=== PATIENT | female | born 1950 | race Caucasian/White ===

== ENCOUNTER 2018-05-13 16:25 | Inpatient (IN) ==
[2018-05-13] MEDS ORDERED: Morphine Inj 4 MG/ML Vial IV.PUSH ONE (20:02)
--- NOTE | 2018-05-13 20:16 | ED ---
HPI General Chief Complaint: Abdominal Pain Stated Complaint: Vomiting/Sob Time Seen by Provider: 05/13/18 20:00 History of Present Illness HPI narrative: This is a 67-year-old female who presents today with diffuse bloody diarrhea. Patient states she has had intermittent left lower abdominal cramps. She reports associated bloody stools. She has had this previously in the past and was told that she had severe colitis. She denies any fevers, chills. She denies any hematemesis but does report nausea and vomiting in addition to the bloody stools. There are no other complaints at the time of my examination. Related Data Home Medications Medication Instructions Recorded Confirmed No Known Home Medications 05/13/18 05/13/18 Allergies Allergy/AdvReac Type Severity Reaction Status Date / Time No Known Allergies Allergy Unverified 05/13/18 19:44 Review of Systems Except as stated in HPI: all other systems reviewed are negative Constitutional Denies chills and Denies fever(s) Eyes Reports system reviewed and no additional complaints, except as [facility] ENT Reports system reviewed and no additional complaints, except as [facility] Cardiovascular Denies chest pain and Denies palpitations Respiratory Denies chest congestion and Denies cough Gastrointestinal Reports hematochezia, Reports nausea, Reports vomiting and Denies hematemesis Genitourinary Denies hematuria and Denies dysuria Musculoskeletal Reports system reviewed and no additional complaints, except as [facility] Integumentary/Breasts Reports system reviewed and no additional complaints, except as [facility] Neurologic Reports dizziness and Denies headache(s) Psychiatric Reports system reviewed and no additional complaints, except as [facility] Endocrine Reports system reviewed and no additional complaints, except as [facility] PMFSH Medical History Medical History Colitis (Acute) H/O: hysterectomy (Acute) Hypertension (Acute) Rheumatoid arthritis (Acute) Surgical History Surgical History History of tonsillectomy and adenoidectomy (Acute) Social History Social History Substance History: No History of Abuse Second Hand Smoke Exposure: Yes Smoking Status: Current every day smoker Tobacco Type: Cigarettes How Often Do You Have a Drink Containing Alcohol: Never Immunization History Tetanus Immunization: <5 Years Hx Influenza Vaccine This Season: Yes Exam Narrative Exam Narrative: GENERAL: Well-developed well-nourished female in no acute respiratory distress. SKIN: Focused skin assessment warm/dry. HEAD: Atraumatic. Normocephalic. EYES: No scleral icterus. No injection or drainage. ENT: No nasal bleeding or discharge. Mucous membranes pink and moist. No gingival bleeding. NECK: Trachea midline. Supple. CARDIOVASCULAR: Regular rate and rhythm. No murmur appreciated. RESPIRATORY: No accessory muscle use. Clear to auscultation. Breath sounds equal bilaterally. GASTROINTESTINAL: Abdomen soft, nondistended. The patient has subjective tenderness in her left lower quadrant. There is no rebound or guarding. MUSCULOSKELETAL: No obvious deformities. No clubbing. No cyanosis. No edema. NEUROLOGICAL: Awake and alert. No obvious cranial nerve deficits. Motor grossly within normal limits. Normal speech. PSYCHIATRIC: Appropriate mood and affect; insight and judgment normal. Course Initial Documented Vital Signs Temperature 99.3 F 05/13/18 16:58 Pulse Rate 85 05/13/18 16:58 Respiratory Rate 17 05/13/18 16:58 Blood Pressure 171/73 H 05/13/18 16:58 Pulse Oximetry 99 05/13/18 16:58 Last Documented Vital Signs Temperature 99.3 F 05/13/18 16:58 Pulse Rate 77 05/13/18 19:35 Respiratory Rate 18 05/13/18 19:35 Blood Pressure 178/72 H 05/13/18 19:35 Pulse Oximetry 100 05/13/18 21:24 Medical Decision Making MDM Narrative Medical decision making narrative: 67-year-old female with a history of colitis , presented today with complaints of hematochezia. Patient's had multiple episodes of blood per rectum. She produced a sample for us which is obviously blood. Patient has left lower quadrant pain. Her H&H is stable at this time. She does not have any free air on her upright abdomen x-ray. CT scan is pending at this time to rule out diverticulitis. Case was discussed with Dr. Enmanuel Courtney, on-call for [facility], who agrees with the admission. He recommended we admit the patient to Dr. Eyl. He will write further orders. She has been started on Levaquin and Flagyl. Differential Diagnosis Differential Diagnosis: Colitis versus diverticulitis versus hemorrhoidal bleeding anemia Lab Data Result diagrams: 05/13/18 19:55 05/13/18 19:55 Lab Results 05/13/18 05/13/18 05/13/18 Range/Units 19:55 19:55 19:55 WBC 14.1 H (4.0-11.0) th/mm3 RBC 4.10 (4.00-5.30) mil/mm3 Hgb 12.7 (11.6-15.3) gm/dL Hct 35.8 (35.0-46.0) % MCV 87.3 (80.0-100.0) fL MCH 31.0 (27.0-34.0) pg MCHC 35.5 (32.0-36.0) % RDW 13.7 (11.6-17.2) % Plt Count 339 (150-450) th/mm3 MPV 7.6 (7.0-11.0) fL Neut % (Auto) 70.3 H (16.0-70.0) % Lymph % (Auto) 21.1 (9.0-44.0) % [place] % (Auto) 7.3 (0.0-8.0) % Eos % (Auto) 0.8 (0.0-4.0) % Baso % (Auto) 0.5 (0.0-2.0) % Neut # (Auto) 9.9 H (1.8-7.7) th/mm3 Lymph # (Auto) 3.0 (1.0-4.8) th/mm3 [place] # (Auto) 1.0 H (0.0-0.9) th/mm3 Eos # (Auto) 0.1 (0.0-0.4) th/mm3 Baso # (Auto) 0.1 (0.0-0.2) th/mm3 WBC Differential . Differential Comment Auto diff final PT 10.8 (9.8-11.6) sec INR 1.1 Ratio APTT 29.6 (24.3-30.1) sec Sodium (136-145) meq/L Potassium (3.5-5.1) meq/L Chloride (98-107) meq/L Carbon Dioxide (21.0-32.0) meq/L Anion Gap (5-15) meq/L BUN (7-18) mg/dL Creatinine (0.50-1.00) mg/dL Estimated GFR (>89) mL/min Random Glucose (74-106) mg/dL Calcium (8.5-10.1) mg/dL Total Bilirubin (0.2-1.0) mg/dL AST (15-37) U/L ALT (10-53) U/L Alkaline Phosphatase (45-117) U/L Total Protein (6.4-8.2) g/dL Albumin (3.4-5.0) g/dL Lipase 117 (73-393) U/L Urine Color (Yellw/Straw) Urine Clarity (Clear) Urine pH (5.0-8.5) Ur Specific [place] (1.002-1.035) Urine Protein (Neg-Trace) mg/dL Urine Glucose (UA) (Negative) mg/dL Urine Ketones (Negative) mg/dL Urine Occult Blood (Negative) Urine Nitrate (Negative) Urine Bilirubin (Negative) Urine Urobilinogen (Less than 2) mg/dL Ur Leukocyte Esterase (Negative) Urine RBC (0-3) /hpf Urine WBC (0-5) /hpf Ur Squamous Epith Cells (0-5) /hpf Urine Mucus (Occasional) /lpf Micro UA Comment Urine Culture Comments Stl C.difficile Tox PCR (Negative) St C. diff Tox Epid 027 (Negative) Blood Type Antibody Screen 05/13/18 05/13/18 05/13/18 Range/Units 19:55 19:55 20:00 WBC (4.0-11.0) th/mm3 RBC (4.00-5.30) mil/mm3 Hgb (11.6-15.3) gm/dL Hct (35.0-46.0) % MCV (80.0-100.0) fL MCH (27.0-34.0) pg MCHC (32.0-36.0) % RDW (11.6-17.2) % Plt Count (150-450) th/mm3 MPV (7.0-11.0) fL Neut % (Auto) (16.0-70.0) % Lymph % (Auto) (9.0-44.0) % [place] % (Auto) (0.0-8.0) % Eos % (Auto) (0.0-4.0) % Baso % (Auto) (0.0-2.0) % Neut # (Auto) (1.8-7.7) th/mm3 Lymph # (Auto) (1.0-4.8) th/mm3 [place] # (Auto) (0.0-0.9) th/mm3 Eos # (Auto) (0.0-0.4) th/mm3 Baso # (Auto) (0.0-0.2) th/mm3 WBC Differential Differential Comment PT (9.8-11.6) sec INR Ratio APTT (24.3-30.1) sec Sodium 139 (136-145) meq/L Potassium 3.5 (3.5-5.1) meq/L Chloride 105 (98-107) meq/L Carbon Dioxide 26.0 (21.0-32.0) meq/L Anion Gap 8 (5-15) meq/L BUN 12 (7-18) mg/dL Creatinine 0.57 (0.50-1.00) mg/dL Estimated GFR Greater than 89 (>89) mL/min Random Glucose 85 (74-106) mg/dL Calcium 9.0 (8.5-10.1) mg/dL Total Bilirubin 0.5 (0.2-1.0) mg/dL AST 15 (15-37) U/L ALT 25 (10-53) U/L Alkaline Phosphatase 112 (45-117) U/L Total Protein 8.1 (6.4-8.2) g/dL Albumin 4.0 (3.4-5.0) g/dL Lipase (73-393) U/L Urine Color (Yellw/Straw) Urine Clarity (Clear) Urine pH (5.0-8.5) Ur Specific [place] (1.002-1.035) Urine Protein (Neg-Trace) mg/dL Urine Glucose (UA) (Negative) mg/dL Urine Ketones (Negative) mg/dL Urine Occult Blood (Negative) Urine Nitrate (Negative) Urine Bilirubin (Negative) Urine Urobilinogen (Less than 2) mg/dL Ur Leukocyte Esterase (Negative) Urine RBC (0-3) /hpf Urine WBC (0-5) /hpf Ur Squamous Epith Cells (0-5) /hpf Urine Mucus (Occasional) /lpf Micro UA Comment Urine Culture Comments Stl C.difficile Tox PCR Negative (Negative) St C. diff Tox Epid 027 Negative (Negative) Blood Type O Positive Antibody Screen Negative 05/13/18 Range/Units 20:02 WBC (4.0-11.0) th/mm3 RBC (4.00-5.30) mil/mm3 Hgb (11.6-15.3) gm/dL Hct (35.0-46.0) % MCV (80.0-100.0) fL MCH (27.0-34.0) pg MCHC (32.0-36.0) % RDW (11.6-17.2) % Plt Count (150-450) th/mm3 MPV (7.0-11.0) fL Neut % (Auto) (16.0-70.0) % Lymph % (Auto) (9.0-44.0) % [place] % (Auto) (0.0-8.0) % Eos % (Auto) (0.0-4.0) % Baso % (Auto) (0.0-2.0) % Neut # (Auto) (1.8-7.7) th/mm3 Lymph # (Auto) (1.0-4.8) th/mm3 [place] # (Auto) (0.0-0.9) th/mm3 Eos # (Auto) (0.0-0.4) th/mm3 Baso # (Auto) (0.0-0.2) th/mm3 WBC Differential Differential Comment PT (9.8-11.6) sec INR Ratio APTT (24.3-30.1) sec Sodium (136-145) meq/L Potassium (3.5-5.1) meq/L Chloride (98-107) meq/L Carbon Dioxide (21.0-32.0) meq/L Anion Gap (5-15) meq/L BUN (7-18) mg/dL Creatinine (0.50-1.00) mg/dL Estimated GFR (>89) mL/min Random Glucose (74-106) mg/dL Calcium (8.5-10.1) mg/dL Total Bilirubin (0.2-1.0) mg/dL AST (15-37) U/L ALT (10-53) U/L Alkaline Phosphatase (45-117) U/L Total Protein (6.4-8.2) g/dL Albumin (3.4-5.0) g/dL Lipase (73-393) U/L Urine Color Yellow (Yellw/Straw) Urine Clarity Hazy H (Clear) Urine pH 5.0 (5.0-8.5) Ur Specific [place] 1.023 (1.002-1.035) Urine Protein Negative (Neg-Trace) mg/dL Urine Glucose (UA) Negative (Negative) mg/dL Urine Ketones Trace H (Negative) mg/dL Urine Occult Blood Small H (Negative) Urine Nitrate Negative (Negative) Urine Bilirubin Negative (Negative) Urine Urobilinogen 2.0 H (Less than 2) mg/dL Ur Leukocyte Esterase Trace H (Negative) Urine RBC 3 (0-3) /hpf Urine WBC 3 (0-5) /hpf Ur Squamous Epith Cells <1 (0-5) /hpf Urine Mucus Many H (Occasional) /lpf Micro UA Comment Culture not ind Urine Culture Comments Culture not ind Stl C.difficile Tox PCR (Negative) St C. diff Tox Epid 027 (Negative) Blood Type Antibody Screen Imaging Data Radiologist's impression: Abdomen X-Ray 05/13/18 19:47 CONCLUSION: Discharge Plan Physicians Team ED Provider: Felix Zendejas Primary Care Provider: Enmanuel Dickens Rxs /Orders / Referrals /Forms Prescriptions: No Action No Known Home Medications RF: 0 Discharge Interventions Interventions: Vital Signs Last Done: 05/13/18 19:35 Status ED Status: With Doctor
[2018-05-13 20:17] LABS: Baso # (Auto) 0.1 th/mm3 (0.0-0.2); Baso % (Auto) 0.5 % (0.0-2.0); Eos # (Auto) 0.1 th/mm3 (0.0-0.4); Eos % (Auto) 0.8 % (0.0-4.0); Hematocrit 35.8 % (35.0-46.0); Hemoglobin 12.7 gm/dL (11.6-15.3); Lymph % (Auto) 21.1 % (9.0-44.0); Mean Corpuscular HGB Conc 35.5 % (32.0-36.0); Mean Corpuscular Volume 87.3 fL (80.0-100.0); Mean Platelet Volume 7.6 fL (7.0-11.0); Mono % (Auto) 7.3 % (0.0-8.0); Neut # (Auto) 9.9 th/mm3 (1.8-7.7); Neut % (Auto) 70.3 % (16.0-70.0); Platelet Count 339 th/mm3 (150-450); Red Cell Distribution Width 13.7 % (11.6-17.2); White Blood Count 14.1 th/mm3 (4.0-11.0)
[2018-05-13 20:24] LABS: Activated Partial Thrombo Time 29.6 sec (24.3-30.1); INR 1.1 Ratio; Prothrombin Time 10.8 sec (9.8-11.6)
[2018-05-13 20:34] LABS: Alanine Aminotransferase 25 U/L (10-53); Anion Gap 8 meq/L (5-15); Aspartate Aminotransferase 15 U/L (15-37); Blood Urea Nitrogen 12 mg/dL (7-18); Chloride 105 meq/L (98-107); Glomerular Filtration Rate Greater Than 89 mL/min (>89); Glucose,Random 85 mg/dL (74-106); Potassium 3.5 meq/L (3.5-5.1); Sodium 139 meq/L (136-145)
[2018-05-13 20:37] LABS: Alkaline Phosphatase 112 U/L (45-117); Total Protein 8.1 g/dL (6.4-8.2)
[2018-05-13 20:44] LABS: Bilirubin,Urine Negative (Negative); Clarity,Urine Hazy (Clear); Color,Urine Yellow (Yellw/Straw); Glucose,Urine (UA) Negative (Negative); Leukocyte Esterase,Urine Trace (Negative); Mucus,Urine Many /lpf (Occasional); Nitrite,Urine Negative (Negative); Specific Gravity,Urine 1.023 (1.002-1.035); Squamous Epithelial Cell,Urine <1 /hpf (0-5)
[2018-05-13] MEDS ORDERED: Sod Chloride 0.9% Inj 1,000 ML IV.SIG ONE (20:44)
--- NOTE | 2018-05-13 21:07 | XR ---
EXAM DATE: 05/13/2018 8:26 PM EDT AGE/SEX: 67 years / Female INDICATIONS: Blood in stool. CLINICAL DATA: This is the patient's initial encounter. Patient reports that signs and symptoms have been present for 3 days and indicates a pain score of 4/10. MEDICAL/SURGICAL HISTORY: None. None. COMPARISON: No prior exams available for comparison. FINDINGS: The abdominal bowel gas pattern is normal. No abnormal masses, calcifications, or organomegaly is s een. There is degenerative change in the lower lumbar spine. 2 small metallic densities are seen over the pubic bones likely from prior bladder suspension surgery. Negative KUB. Electronically signed by: Wilson Carey MD 05/13/2018 9:06 PM EDT
[2018-05-13] MEDS ORDERED: Levofloxacin 500 mg Premix Inj 500 MG/100 ML PIGGYBACK IV.SIG ONE (21:30)
[2018-05-13] MEDS ORDERED: Diatrizoate Meglum/Diatrizoate Sod Liq 9 ML UDC PO ONE (21:37)
[2018-05-13] MEDS ORDERED: Diatrizoate Meglum/Diatrizoate Sod Liq 9 ML UDC ONE (21:42)
[2018-05-13] MEDS ORDERED: Bisacodyl 10 MG Supp RECTAL PRN (23:11)
[2018-05-13] MEDS ORDERED: Temazepam 15 MG Capsule PO PRN (23:11)
--- NOTE | 2018-05-13 23:25 | P.HP ---
History of Present Illness Service: CP hospitalist Primary Care Physician: Enmanuel Dickens MD Chief Complaint: Blood per rectum with abdominal pain History of Present Illness: 67-year-old female who was sent via telephone conversation by myself with diffuse bloody diarrhea that has been lasting all day. Associated with this symptom with this diffuse bloody diarrhea his left lower quadrant abdominal pain. Has several episodes of bloody stools. She has had a similar presentation in the past and was told at that time that she had severe colitis. Denies any fever, chills, hematemesis does have some nausea and vomiting in addition to the bloody stools. Denies chest pain ,shortness of breath but does have some fatigue. In the emergency room had lab work showing a WBC count of 14 ,000 and is empirically started on IV antibiotic Levaquin and Flagyl at this time CAT scan will be ordered and we will consult [facility] GI. - Diagnosis (1) Hematochezia (2) Colitis Inpatient Certification: I certify that the inpatient services were ordered in accordance with Medicare regulations governing the order. This includes certification that hospital inpatient services are reasonable and necessary and in the case of services not specified as inpatient-only under 42 CFR 419.22(n), that they are appropriately provided as inpatient services in accordance to with the 2-midnight benchmark under 43 CFR 412.3(e) Estimated Total Length of Stay (Days): 2 Plans for Post Hospital Care: Home Review of Systems All other systems reviewed negative except as stated in [facility] - History History Provided By: Patient - Medical History Medical History: Medical History (Last Updated 05/13/18 @ 19:37 by Zoey Oviedo) Colitis H/O: hysterectomy Hypertension Rheumatoid arthritis - Surgical History Surgical History: Surgical History (Last Updated 05/13/18 @ 19:37 by Zoey Oviedo) History of tonsillectomy and adenoidectomy - Tobacco History Second Hand Smoke Exposure: Yes Tobacco Use In Past 30 Days: Yes Smoking Status: Current every day smoker Tobacco Type: Cigarettes - Alcohol History How Often Do You Have a Drink Containing Alcohol: Never - Substance Use History Substance History: No History of Abuse - Immunization History Tetanus Immunization: <5 Years Hx Influenza Vaccine This Season: Yes Medications and Allergies Active Medications: Active Medications Al Hydroxide/Mg Hydroxide (Milk Of Magnpallavi Liq) 30 ml PO Q12H PRN PRN Reason: Mild Constipation Bisacodyl (Dulcolax Supp) 10 mg RECTAL DAILY PRN PRN Reason: SEVERE CONSITIPATION Levofloxacin/Dextrose (Levaquin 500 Mg Premix Inj) 500 mg in 100 mls @ 100 mls/ hr IV.SIG Q24H TONA Metronidazole/Sodium Chloride (Flagyl 500 Mg Inj) 100 mls @ 100 mls/hr IV.SIG Q8H TONA Sodium Chloride (1/2 Normal Saline Inj) 1,000 mls @ 75 mls/hr IV.CONT .[id number] TONA Lactulose (Lactulose Liq) 30 ml PO DAILY PRN PRN Reason: SEVERE CONSITIPATION Morphine Sulfate (Morphine Inj) 4 mg IV.PUSH Q4H PRN PRN Reason: PAIN SCALE 6 TO 10 Senna/Docusate Sodium (Vanessa-Colace) 1 tab PO BID TONA Sennosides (Senokot) 17.2 mg PO Q12H PRN PRN Reason: Moderate Constipation Sodium Chloride (Ns Flush) 2 ml IV.FLUSH PRN PRN PRN Reason: FLUSH AFTER USING IV ACCESS Temazepam (Restoril) 15 mg PO HS PRN PRN Reason: INSOMNIA Allergies Allergy/AdvReac Type Severity Reaction Status Date / Time No Known Allergies Allergy Unverified 05/13/18 19:44 Home Medications Medication Instructions Recorded Confirmed Type No Known Home Medications 05/13/18 05/13/18 History Exam Vital signs: Vital Signs 05/13/18 16:58 05/13/18 19:35 05/13/18 21:24 Temperature 99.3 F Pulse Rate 85 77 Respiratory Rate 17 18 Blood Pressure 171/73 H 178/72 H Pulse Oximetry 99 99 100 Intake & Output 05/13/18 05/13/18 05/14/18 06:59 18:59 06:59 Weight 86.581 kg Narrative: GENERAL: SKIN: Warm and dry. HEAD: Atraumatic. Normocephalic. EYES: Pupils equal and round. No scleral icterus. No injection or drainage. ENT: No nasal bleeding or discharge. Mucous membranes pink and moist. NECK: Trachea midline. No JVD. CARDIOVASCULAR: Regular rate and rhythm. RESPIRATORY: No accessory muscle use. Clear to auscultation. Breath sounds equal bilaterally. GASTROINTESTINAL: Abdomen soft, -tender left lower quadrant, nondistended. Hepatic and splenic margins not palpable. MUSCULOSKELETAL: Extremities without clubbing, cyanosis, or edema. No obvious deformities. NEUROLOGICAL: Awake and alert. No obvious cranial nerve deficits. Motor grossly within normal limits. Five out of 5 muscle strength in the arms and legs. Normal speech. PSYCHIATRIC: Appropriate mood and affect; insight and judgment normal. Results - Labs CBC & Chem 7: 05/13/18 19:55 05/13/18 19:55 Labs: Laboratory Results - last 24 hr 05/13/18 05/13/18 05/13/18 19:55 19:55 19:55 WBC 14.1 H RBC 4.10 Hgb 12.7 Hct 35.8 MCV 87.3 MCH 31.0 MCHC 35.5 RDW 13.7 Plt Count 339 MPV 7.6 Neut % (Auto) 70.3 H Lymph % (Auto) 21.1 [place] % (Auto) 7.3 Eos % (Auto) 0.8 Baso % (Auto) 0.5 Neut # (Auto) 9.9 H Lymph # (Auto) 3.0 [place] # (Auto) 1.0 H Eos # (Auto) 0.1 Baso # (Auto) 0.1 WBC Differential . Differential Comment Auto diff final PT 10.8 INR 1.1 APTT 29.6 Sodium Potassium Chloride Carbon Dioxide Anion Gap BUN Creatinine Estimated GFR Random Glucose Calcium Total Bilirubin AST ALT Alkaline Phosphatase Total Protein Albumin Lipase 117 Urine Color Urine Clarity Urine pH Ur Specific [place] Urine Protein Urine Glucose (UA) Urine Ketones Urine Occult Blood Urine Nitrate Urine Bilirubin Urine Urobilinogen Ur Leukocyte Esterase Urine RBC Urine WBC Ur Squamous Epith Cells Urine Mucus Micro UA Comment Urine Culture Comments Stl C.difficile Tox PCR St C. diff Tox Epid 027 Blood Type Antibody Screen 05/13/18 05/13/18 05/13/18 19:55 19:55 20:00 WBC RBC Hgb Hct MCV MCH MCHC RDW Plt Count MPV Neut % (Auto) Lymph % (Auto) [place] % (Auto) Eos % (Auto) Baso % (Auto) Neut # (Auto) Lymph # (Auto) [place] # (Auto) Eos # (Auto) Baso # (Auto) WBC Differential Differential Comment PT INR APTT Sodium 139 Potassium 3.5 Chloride 105 Carbon Dioxide 26.0 Anion Gap 8 BUN 12 Creatinine 0.57 Estimated GFR Greater than 89 Random Glucose 85 Calcium 9.0 Total Bilirubin 0.5 AST 15 ALT 25 Alkaline Phosphatase 112 Total Protein 8.1 Albumin 4.0 Lipase Urine Color Urine Clarity Urine pH Ur Specific [place] Urine Protein Urine Glucose (UA) Urine Ketones Urine Occult Blood Urine Nitrate Urine Bilirubin Urine Urobilinogen Ur Leukocyte Esterase Urine RBC Urine WBC Ur Squamous Epith Cells Urine Mucus Micro UA Comment Urine Culture Comments Stl C.difficile Tox PCR Negative St C. diff Tox Epid 027 Negative Blood Type O Positive Antibody Screen Negative 05/13/18 20:02 WBC RBC Hgb Hct MCV MCH MCHC RDW Plt Count MPV Neut % (Auto) Lymph % (Auto) [place] % (Auto) Eos % (Auto) Baso % (Auto) Neut # (Auto) Lymph # (Auto) [place] # (Auto) Eos # (Auto) Baso # (Auto) WBC Differential Differential Comment PT INR APTT Sodium Potassium Chloride Carbon Dioxide Anion Gap BUN Creatinine Estimated GFR Random Glucose Calcium Total Bilirubin AST ALT Alkaline Phosphatase Total Protein Albumin Lipase Urine Color Yellow Urine Clarity Hazy H Urine pH 5.0 Ur Specific [place] 1.023 Urine Protein Negative Urine Glucose (UA) Negative Urine Ketones Trace H Urine Occult Blood Small H Urine Nitrate Negative Urine Bilirubin Negative Urine Urobilinogen 2.0 H Ur Leukocyte Esterase Trace H Urine RBC 3 Urine WBC 3 Ur Squamous Epith Cells <1 Urine Mucus Many H Micro UA Comment Culture not ind Urine Culture Comments Culture not ind Stl C.difficile Tox PCR St C. diff Tox Epid 027 Blood Type Antibody Screen - Imaging Impressions Abdomen X-Ray 05/13/18 19:47 CONCLUSION: abd xray negative Caprini VTE Risk Assessment Caprini VTE Risk Assessment: No/Low Risk (score <= 1) Caprini Risk Assessment Model: Point Value = 1 Point Value = 2 Point Value = 3 Point Value = 5 Age 41-60 Minor surgery BMI > 25 kg/m2 Swollen legs Varicose veins or History of unexplained or recurrent spontaneous Oral contraceptives or hormone replacement Sepsis (< 1 month) Serious lung disease, including pneumonia (< 1 month) Abnormal pulmonary function Acute myocardial infarction Congestive heart failure (< 1 month) History of inflammatory bowel disease Medical patient at bed rest Age 61-74 Arthroscopic surgery Major open surgery (> 45 min) Laparoscopic surgery (> 45 min) Malignancy Confined to bed (> 72 hours) Immobilizing plaster cast Central venous access Age >= 75 History of VTE Family history of VTE Factor V Leiden Prothrombin [id number] Lupus anticoagulant Anticardiolipin antibodies Elevated serum homocysteine Heparin-induced thrombocytopenia Other congenital or acquired thrombophilia Stroke (< 1 month) Elective arthroplasty Hip, pelvis, or leg fracture Acute spinal cord injury (< 1 month) Prophylaxis Regimen: Total Risk Factor Score Risk Level Prophylaxis Regimen 0-1 Low Early ambulation 2 Moderate Order ONE of the following: *Sequential Compression Device (SCD) *Heparin 5000 units SQ BID 3-4 Higher Order ONE of the following medications: *Heparin 5000 units SQ TID *Enoxaparin/Lovenox 40 mg SQ daily (WT < 150 kg, CrCl > 30 mL/min) *Enoxaparin/Lovenox 30 mg SQ daily (WT < 150 kg, CrCl > 10-29 mL/min) *Enoxaparin/Lovenox 30 mg SQ BID (WT < 150 kg, CrCl > 30 mL/min) AND/OR *Sequential Compression Device (SCD) 5 or more Highest Order ONE of the following medications: *Heparin 5000 units SQ TID (Preferred with Epidurals) *Enoxaparin/Lovenox 40 mg SQ daily (WT < 150 kg, CrCl > 30 mL/min) *Enoxaparin/Lovenox 30 mg SQ daily (WT < 150 kg, CrCl > 10-29 mL/min) *Enoxaparin/Lovenox 30 mg SQ BID (WT < 150 kg, CrCl > 30 mL/min) AND *Sequential Compression Device (SCD) Assessment and Plan - Assessment (1) Hematochezia Code(s): K92.1 - Melena Status: Acute Plan: follow [facility] GI consult (2) Colitis Code(s): K52.9 - Noninfective gastroenteritis and colitis, unspecified Status : Acute Plan: Patient does have a history of colitis in the past will empirically start Flagyl and Levaquin and consult [facility] GI - Plan Patient with hx colitis with similar presentation will empiric start flagyl and levaquin consult GI recheck labs further plan as case progresses Code Status: full Discussed Condition With: patient
[2018-05-13] MEDS ORDERED: Acetaminophen 325 MG Tablet PO PRN (23:29)
--- NOTE | 2018-05-14 00:29 | CT ---
EXAM DATE: 05/14/2018 12:22 AM EDT AGE/SEX: 67 years / Female INDICATIONS: Abdomen pain. CLINICAL DATA: This is the patient's initial encounter. Patient reports that signs and symptoms have been present for 1 day and indicates a pain score of 6/10. MEDICAL/SURGICAL HISTORY: Rheumatoid arthritis. Hypertension. Colitis. Hysterectomy. Appende ctomy. ORAL CONTRAST: Prescribed oral contrast ingested. RADIATION DOSE: 8.1 CTDI (mGy) COMPARISON: [facility], CT ABDOMEN AND PELVIS W/O CONTRAST, 01/23/2015. . TECHNIQUE: Multiple contiguous axial images were obtained through the abdomen and pelvis following b olus infusion of 100 ml Omnipaque 350 (iohexol) nonionic water-soluble contrast as a single exam do se. Prescribed oral contrast ingested. Using automated exposure control and adjustment of the mA and /or kV according to patient size, radiation dose was kept as low as reasonably achievable to obtain o ptimal diagnostic quality images. DICOM format image data is available electronically for review and comparison. FINDINGS: Lower Lungs: The visualized lower lungs are clear. Liver: Isolated, 7 mm probable cyst in the right hepatic lobe. Otherwise, homogeneous density. There is no dilation of the biliary tree. Spleen: Homogeneous density without enlargement. Pancreas: Unremarkable without mass or calcification. Kidneys: Normal in size and shape. No evidence of mass or hydronephrosis. Adrenal Glands: Unremarkable. Aorta: The aorta and proximal iliac vessels are grossly unremarkable without aneurysmal dilation. Bowel/Mesentery: The bowel loops are grossly unremarkable. The cecum and sigmoid colon have a normal configuration. Appendix is not identified Abdominal Wall: Intact. Retroperitoneum: No evidence of adenopathy in the retrocrural, para-aortic, or deep pelvic regions. Bladder: Contours are smooth. Reproductive Organs: Patient appears to be status post hysterectomy. Inguinal: The inguinal region is unremarkable without evidence of adenopathy. Bony Structures: Unremarkable. Post Contrast: No abnormal areas of enhancement seen. 1. 7 mm benign-appearing probable right hepatic lobe cyst. 2. Patient appears to be status post appendectomy and hysterectomy. 3. Otherwise, no acute intraperitoneal or pelvic process to explain current clinical symptoms. Electronically signed by: Fantasma Dillon MD 05/14/2018 12:28 AM EDT
[2018-05-14] MEDS: Sodium Chloride 0.45 % Inj 1,000 ML IV.CONT SCH ×2 (00:53→14:18)
[2018-05-14] MEDS: Morphine Inj 4 MG/ML Vial IV.PUSH PRN ×4 (01:54→20:25)
[2018-05-14 07:39] LABS: Baso # (Auto) 0.1 th/mm3 (0.0-0.2); Baso % (Auto) 0.6 % (0.0-2.0); Eos # (Auto) 0.2 th/mm3 (0.0-0.4); Eos % (Auto) 2.4 % (0.0-4.0); Hematocrit 31.2 % (35.0-46.0); Hemoglobin 10.8 gm/dL (11.6-15.3); Lymph # (Auto) 3.2 th/mm3 (1.0-4.8); Lymph % (Auto) 31.7 % (9.0-44.0); Mean Corpuscular HGB Conc 34.5 % (32.0-36.0); Mean Corpuscular Hemoglobin 30.8 pg (27.0-34.0); Mean Corpuscular Volume 89.5 fL (80.0-100.0); Mean Platelet Volume 7.6 fL (7.0-11.0); Mono # (Auto) 1.1 th/mm3 (0.0-0.9); Mono % (Auto) 10.7 % (0.0-8.0); Neut # (Auto) 5.5 th/mm3 (1.8-7.7); Neut % (Auto) 54.6 % (16.0-70.0); Platelet Count 284 th/mm3 (150-450); Red Blood Count 3.49 mil/mm3 (4.00-5.30); Red Cell Distribution Width 13.4 % (11.6-17.2); White Blood Count 10.1 th/mm3 (4.0-11.0)
[2018-05-14 08:10] LABS: Anion Gap 6 meq/L (5-15); Blood Urea Nitrogen 8 mg/dL (7-18); Carbon Dioxide 28.5 meq/L (21.0-32.0); Chloride 107 meq/L (98-107); Glomerular Filtration Rate Greater Than 89 mL/min (>89); Glucose,Random 103 mg/dL (74-106); Potassium 3.5 meq/L (3.5-5.1); Sodium 141 meq/L (136-145)
[2018-05-14] MEDS: Senna/Docusate Sodium 8.6/50 MG Tablet PO SCH ×2 (08:20→20:22)
--- NOTE | 2018-05-14 08:50 | P.PNIM ---
Subjective Interval history: Pt reports that her abd pain is relatively unchanged. She had not had any further bloody BMs since around 0400 this morning No further vomiting since prior to admission. Afebrile Tolerating sips of clear liquids Physical Exam Vital signs: Vital Signs 05/13/18 16:58 05/13/18 19:35 05/13/18 21:24 Temperature 99.3 F Pulse Rate 85 77 Respiratory Rate 17 18 Blood Pressure 171/73 H 178/72 H Pulse Oximetry 99 99 100 05/14/18 00:28 05/14/18 04:00 05/14/18 08:00 Temperature 98.7 F 98.6 F Pulse Rate 77 63 62 Respiratory Rate 18 16 16 Blood Pressure 138/78 114/47 L 131/58 L Pulse Oximetry 98 97 Intake & Output 05/13/18 05/14/18 05/14/18 18:59 06:59 18:59 Intake Total 100 / 100 Balance 100 / 100 Weight 86.581 kg Intake: IV 100 / 100 Flagyl 500 MG Inj 100 ML @ 100 100 / 100 mls/hr IV.SIG Q8H [facility] Rx#: [id number] Other: # Voids 3 Date of Last Bowel Movement 05/14/18 # Bowel Movements 3 Narrative: GENERAL: NAD, AAOx3 CARDIO: Regular RESP: Breath sounds equal bilaterally. No accessory muscle use. ABD: +BS, soft, nondistended, left sided tenderness, no guarding or rebound EXT: No cyanosis, or edema. Results - Labs CBC & Chem 7: 05/14/18 06:10 05/14/18 06:10 Laboratory Results - last 24 hr 05/13/18 05/13/18 05/13/18 19:55 19:55 19:55 WBC 14.1 H RBC 4.10 Hgb 12.7 Hct 35.8 MCV 87.3 MCH 31.0 MCHC 35.5 RDW 13.7 Plt Count 339 MPV 7.6 Neut % (Auto) 70.3 H Lymph % (Auto) 21.1 [place] % (Auto) 7.3 Eos % (Auto) 0.8 Baso % (Auto) 0.5 Neut # (Auto) 9.9 H Lymph # (Auto) 3.0 [place] # (Auto) 1.0 H Eos # (Auto) 0.1 Baso # (Auto) 0.1 WBC Differential . Differential Comment Auto diff final PT 10.8 INR 1.1 APTT 29.6 Sodium Potassium Chloride Carbon Dioxide Anion Gap BUN Creatinine Estimated GFR Random Glucose Calcium Total Bilirubin AST ALT Alkaline Phosphatase Total Protein Albumin Lipase 117 Urine Color Urine Clarity Urine pH Ur Specific [place] Urine Protein Urine Glucose (UA) Urine Ketones Urine Occult Blood Urine Nitrate Urine Bilirubin Urine Urobilinogen Ur Leukocyte Esterase Urine RBC Urine WBC Ur Squamous Epith Cells Urine Mucus Micro UA Comment Urine Culture Comments Stl C.difficile Tox PCR St C. diff Tox Epid 027 Blood Type Antibody Screen 05/13/18 05/13/18 05/13/18 19:55 19:55 20:00 WBC RBC Hgb Hct MCV MCH MCHC RDW Plt Count MPV Neut % (Auto) Lymph % (Auto) [place] % (Auto) Eos % (Auto) Baso % (Auto) Neut # (Auto) Lymph # (Auto) [place] # (Auto) Eos # (Auto) Baso # (Auto) WBC Differential Differential Comment PT INR APTT Sodium 139 Potassium 3.5 Chloride 105 Carbon Dioxide 26.0 Anion Gap 8 BUN 12 Creatinine 0.57 Estimated GFR Greater than 89 Random Glucose 85 Calcium 9.0 Total Bilirubin 0.5 AST 15 ALT 25 Alkaline Phosphatase 112 Total Protein 8.1 Albumin 4.0 Lipase Urine Color Urine Clarity Urine pH Ur Specific [place] Urine Protein Urine Glucose (UA) Urine Ketones Urine Occult Blood Urine Nitrate Urine Bilirubin Urine Urobilinogen Ur Leukocyte Esterase Urine RBC Urine WBC Ur Squamous Epith Cells Urine Mucus Micro UA Comment Urine Culture Comments Stl C.difficile Tox PCR Negative St C. diff Tox Epid 027 Negative Blood Type O Positive Antibody Screen Negative 05/13/18 05/14/18 05/14/18 20:02 06:10 06:10 WBC 10.1 RBC 3.49 L Hgb 10.8 L Hct 31.2 L MCV 89.5 MCH 30.8 MCHC 34.5 RDW 13.4 Plt Count 284 MPV 7.6 Neut % (Auto) 54.6 Lymph % (Auto) 31.7 [place] % (Auto) 10.7 H Eos % (Auto) 2.4 Baso % (Auto) 0.6 Neut # (Auto) 5.5 Lymph # (Auto) 3.2 [place] # (Auto) 1.1 H Eos # (Auto) 0.2 Baso # (Auto) 0.1 WBC Differential . Differential Comment Auto diff final PT INR APTT Sodium 141 Potassium 3.5 Chloride 107 Carbon Dioxide 28.5 Anion Gap 6 BUN 8 Creatinine 0.62 Estimated GFR Greater than 89 Random Glucose 103 Calcium 8.0 L D Total Bilirubin AST ALT Alkaline Phosphatase Total Protein Albumin Lipase Urine Color Yellow Urine Clarity Hazy H Urine pH 5.0 Ur Specific [place] 1.023 Urine Protein Negative Urine Glucose (UA) Negative Urine Ketones Trace H Urine Occult Blood Small H Urine Nitrate Negative Urine Bilirubin Negative Urine Urobilinogen 2.0 H Ur Leukocyte Esterase Trace H Urine RBC 3 Urine WBC 3 Ur Squamous Epith Cells <1 Urine Mucus Many H Micro UA Comment Culture not ind Urine Culture Comments Culture not ind Stl C.difficile Tox PCR St C. diff Tox Epid 027 Blood Type Antibody Screen - Imaging Impressions Abdomen X-Ray 05/13/18 19:47 CONCLUSION: Abdomen/Pelvis CT 05/14/18 00:00 CONCLUSION: Assessment and Plan - Assessment (1) Hematochezia Code(s): K92.1 - Melena Status: Acute Plan: Hematochezia Hx of acute colitis Anemia - Pt is a 67 y/o female with HTN, RA, remote hx of acute ischemic colitis ( colonoscopy [place] [address] Krishnamurthy which revealed left sided colitis and pathology consistent with ischemic colitis). - She presented to the ED at [facility] on 05/13/18 with acute onset of abdominal pain, N/V, and hematochezia that began around 0600 on 05/13. - Pt reported profuse N/V but no hematemesis or coffee-ground emesis. She had hematochezia and mucoid stools up until around 0400 on 05/14. - CT Abd/pelvis (05/13) --> 7 mm benign-appearing probable right hepatic lobe cyst, s/p appendectomy and hysterectomy, otherwise, no acute intraperitoneal or pelvic process to explain current clinical symptoms. - Pt was started on Flagyl and Levaquin at admission - Cont. IVF - Pain control PRN - Stools are negative for C. diff - Clear liquid diet - GI has been consulted - Monitor labs closely - Supportive care - DVT prophylaxis HTN - Pt does not take any home meds - BP stable currently - PRN BP control The exam, history, and the medical decision-making described in the above note were completed with the assistance of the mid-level provider. I reviewed and agree with the findings presented. I attest that I had a [id number] encounter with the patient on the same day, and personally performed and documented my assessment and findings in the medical record. left lower quad pain and hematochezia. nonbloody vomiting. remote hx ischemic colitis. not on any bp meds. no hx IBD. no recent abx use and cdiff neg. c scope in AM. IVF. pain control. liquids. (2) Colitis Code(s): K52.9 - Noninfective gastroenteritis and colitis, unspecified Status : Acute
--- NOTE | 2018-05-14 09:13 | P.CONGI ---
History of Present Illness Consult date: 05/14/18 Consult reason: GIB Chief complaint: GI bleed, HX of colitis History of Present Illness: This is a 67 yo F who presented to the ER Last night with complaints of abdominal pain and rectal bleeding. Pt reports a LLQ abdominal pain woke her up out of her sleep yesterday morning and she felt the sudden urge to go to the bathroom. She reports passing a lot of gas as well as BRB with clots. Also had episode of emesis at that time, denies hematemesis and coffee ground emesis. States continued nausea but no further episodes of emesis. Pt reports multiple episode since yesterday morning, last episode was at 4 am this morning. Pain in LLQ area is constant worse with BMs. Pt has history of bloody stools and had a colonoscopy in 2004 by our service which revealed left sided colitis and pathology consistent with ischemic colitis. Last EGD in 2001 revealed moderate esophagitis, questionable nodularity at the GE junction, multiple polyps in the body of the stomach, normal duodenum. Pathology ( gastric polyp) body-type gastric mucosa with benign lymphoid aggregates, inflammation is not identified (GE junction) gastric mucosa with mild chronic inflammation. Pt states since that time she has had no GI issues until yesterday. Denies taking any blood thinners. Denies ETOH and NSAID use. Smokes 1/2 PPD. <Janell Garibay - Last Filed: 05/14/18 08:52> Review of Systems Gastrointestinal: Reports abdominal pain, Reports bright, red blood in stools, Reports loose stools, Reports nausea, Reports vomiting, Denies coffee ground vomit, Denies heartburn, Denies vomiting blood <Janell Garibay - Last Filed: 05/14/18 08:52> [facility] - History History Provided By: Patient - Medical History Medical History: Medical History (Last Updated 05/14/18 @ 01:12 by Melisa Garcia RN) Carpal tunnel syndrome Colitis H/O: hysterectomy Hypertension Rheumatoid arthritis - Surgical History Surgical History: Surgical History (Last Updated 05/13/18 @ 19:37 by Zoey Oviedo) History of tonsillectomy and adenoidectomy - Tobacco History Second Hand Smoke Exposure: Yes Tobacco Use In Past 30 Days: Yes (1/2 PPD) Smoking Status: Current every day smoker Tobacco Type: Cigarettes - Alcohol History How Often Do You Have a Drink Containing Alcohol: Never - Substance Use History Substance History: No History of Abuse - Immunization History Tetanus Immunization: <5 Years Hx Influenza Vaccine This Season: Yes <Janell Garibay - Last Filed: 05/14/18 08:52> - Medical History Medical History: Medical History (Last Updated 05/14/18 @ 01:12 by Melisa Garcia RN) Carpal tunnel syndrome Colitis H/O: hysterectomy Hypertension Rheumatoid arthritis - Surgical History Surgical History: Surgical History (Last Updated 05/13/18 @ 19:37 by Zoey Oviedo) History of tonsillectomy and adenoidectomy <Elliot Melgoza - Last Filed: 05/14/18 18:28> Medications and Allergies Active Medications: Active Medications Acetaminophen (Tylenol) 650 mg PO Q6H PRN PRN Reason: FEVER Al Hydroxide/Mg Hydroxide (Milk Of Magnesia Liq) 30 ml PO Q12H PRN PRN Reason: Mild Constipation Bisacodyl (Dulcolax Supp) 10 mg RECTAL DAILY PRN PRN Reason: SEVERE CONSITIPATION Levofloxacin/Dextrose (Levaquin 500 Mg Premix Inj) 500 mg in 100 mls @ 100 mls/ hr IV.SIG Q24H [facility] Metronidazole/Sodium Chloride (Flagyl 500 Mg Inj) 100 mls @ 100 mls/hr IV.SIG Q8H [facility] Last Infusion: 05/14/18 08:03 Dose: Infused Sodium Chloride (1/2 Normal Saline Inj) 1,000 mls @ 75 mls/hr IV.CONT .[id number] [facility] Last Admin: 05/14/18 00:53 Dose: 75 mls/hr Lactulose (Lactulose Liq) 30 ml PO DAILY PRN PRN Reason: SEVERE CONSITIPATION Morphine Sulfate (Morphine Inj) 4 mg IV.PUSH Q4H PRN PRN Reason: PAIN SCALE 6 TO 10 Last Admin: 05/14/18 08:18 Dose: 4 mg Ondansetron HCl (Zofran Odt) 4 mg PO Q4H PRN PRN Reason: NAUSEA OR VOMITING Last Admin: 05/14/18 02:47 Dose: 4 mg Senna/Docusate Sodium (Vanessa-Colace) 1 tab PO BID [facility] Last Admin: 05/14/18 08:20 Dose: Not Given Sennosides (Senokot) 17.2 mg PO Q12H PRN PRN Reason: Moderate Constipation Sodium Chloride (Ns Flush) 2 ml IV.FLUSH PRN PRN PRN Reason: FLUSH AFTER USING IV ACCESS Temazepam (Restoril) 15 mg PO HS PRN PRN Reason: INSOMNIA Last Admin: 05/14/18 01:54 Dose: 15 mg <Janell Garibya - Last Filed: 05/14/18 08:52> Active Medications: Active Medications Acetaminophen (Tylenol) 650 mg PO Q6H PRN PRN Reason: FEVER Al Hydroxide/Mg Hydroxide (Milk Of Magnesia Liq) 30 ml PO Q12H PRN PRN Reason: Mild Constipation Bisacodyl (Dulcolax Supp) 10 mg RECTAL DAILY PRN PRN Reason: SEVERE CONSITIPATION Levofloxacin/Dextrose (Levaquin 500 Mg Premix Inj) 500 mg in 100 mls @ 100 mls/ hr IV.SIG Q24H [facility] Metronidazole/Sodium Chloride (Flagyl 500 Mg Inj) 100 mls @ 100 mls/hr IV.SIG Q8H [facility] Last Infusion: 05/14/18 15:18 Dose: Infused Sodium Chloride (1/2 Normal Saline Inj) 1,000 mls @ 75 mls/hr IV.CONT .[id number] [facility] Last Admin: 05/14/18 14:18 Dose: 75 mls/hr Lactulose (Lactulose Liq) 30 ml PO DAILY PRN PRN Reason: SEVERE CONSITIPATION Morphine Sulfate (Morphine Inj) 4 mg IV.PUSH Q4H PRN PRN Reason: PAIN SCALE 6 TO 10 Last Admin: 05/14/18 16:02 Dose: 4 mg Ondansetron HCl (Zofran Odt) 4 mg PO Q4H PRN PRN Reason: NAUSEA OR VOMITING Last Admin: 05/14/18 02:47 Dose: 4 mg Senna/Docusate Sodium (Vanessa-Colace) 1 tab PO BID [facility] Last Admin: 05/14/18 08:20 Dose: Not Given Sennosides (Senokot) 17.2 mg PO Q12H PRN PRN Reason: Moderate Constipation Sodium Chloride (Ns Flush) 2 ml IV.FLUSH PRN PRN PRN Reason: FLUSH AFTER USING IV ACCESS Temazepam (Restoril) 15 mg PO HS PRN PRN Reason: INSOMNIA Last Admin: 05/14/18 01:54 Dose: 15 mg <Elliot Melgoza - Last Filed: 05/14/18 18:28> Allergies Allergy/AdvReac Type Severity Reaction Status Date / Time No Known Allergies Allergy Unverified 05/13/18 19:44 Home Medications Medication Instructions Recorded Confirmed Type No Known Home Medications 05/13/18 05/13/18 History Exam Vital signs: Vital Signs 05/13/18 16:58 05/13/18 19:35 05/13/18 21:24 Temperature 99.3 F Pulse Rate 85 77 Respiratory Rate 17 18 Blood Pressure 171/73 H 178/72 H Pulse Oximetry 99 99 100 05/14/18 00:28 05/14/18 04:00 05/14/18 08:00 Temperature 98.7 F 98.6 F Pulse Rate 77 63 62 Respiratory Rate 18 16 16 Blood Pressure 138/78 114/47 L 131/58 L Pulse Oximetry 98 97 Intake & Output 05/13/18 05/14/18 05/14/18 18:59 06:59 18:59 Intake Total 100 / 100 Balance 100 / 100 Weight 86.581 kg Intake: IV 100 / 100 Flagyl 500 MG Inj 100 ML @ 100 100 / 100 mls/hr IV.SIG Q8H [facility] Rx#: [id number] Other: # Voids 3 Date of Last Bowel Movement 05/14/18 # Bowel Movements 3 - Constitutional no acute distress - Routine HEENT Exam Head: Present: normocephalic, atraumatic - Routine Respiratory Exam Absent: accessory muscle use - Routine Cardiovascular Exam Present: RRR - Routine Abdominal Exam Present: soft, normoactive bowel sounds, tenderness (LLQ tenderness ). Absent: distended - Routine Skin Exam Present: dry, warm - Routine Neurological Exam Present: alert, oriented X3 <Janell Garibay - Last Filed: 05/14/18 08:52> Vital signs: Vital Signs 05/13/18 19:35 05/13/18 21:24 05/14/18 00:28 Temperature Pulse Rate 77 77 Respiratory Rate 18 18 Blood Pressure 178/72 H 138/78 Pulse Oximetry 99 100 05/14/18 04:00 05/14/18 08:00 05/14/18 12:00 Temperature 98.7 F 98.6 F 98.9 F Pulse Rate 63 62 54 L Respiratory Rate 16 16 16 Blood Pressure 114/47 L 131/58 L 122/58 L Pulse Oximetry 98 97 97 05/14/18 15:30 Temperature 98.6 F Pulse Rate 60 Respiratory Rate 16 Blood Pressure 135/60 Pulse Oximetry 16 L Intake & Output 05/13/18 05/14/18 05/14/18 18:59 06:59 18:59 Intake Total 2400 / 2400 Balance 2400 / 2400 Weight 86.581 kg 86.58 kg Intake: IV 2400 / 2400 1/2 Normal Saline Inj 1,000 ML 1000 / 1000 @ 75 mls/hr IV.CONT .[id number] [facility] Rx#:[id number] Flagyl 500 MG Inj 100 ML @ 100 200 / 200 mls/hr IV.SIG Q8H [facility] Rx#: [id number] Other: # Voids 3 Date of Last Bowel Movement 05/14/18 05/14/18 # Bowel Movements 3 Weight On Admission 86.58 kg <Elliot Melgoza - Last Filed: 05/14/18 18:28> Results - Labs CBC & Chem 7: 05/14/18 06:10 05/14/18 06:10 Labs: Laboratory Results - last 24 hr 05/13/18 05/13/18 05/13/18 19:55 19:55 19:55 WBC 14.1 H RBC 4.10 Hgb 12.7 Hct 35.8 MCV 87.3 MCH 31.0 MCHC 35.5 RDW 13.7 Plt Count 339 MPV 7.6 Neut % (Auto) 70.3 H Lymph % (Auto) 21.1 [place] % (Auto) 7.3 Eos % (Auto) 0.8 Baso % (Auto) 0.5 Neut # (Auto) 9.9 H Lymph # (Auto) 3.0 [place] # (Auto) 1.0 H Eos # (Auto) 0.1 Baso # (Auto) 0.1 WBC Differential . Differential Comment Auto diff final PT 10.8 INR 1.1 APTT 29.6 Sodium Potassium Chloride Carbon Dioxide Anion Gap BUN Creatinine Estimated GFR Random Glucose Calcium Total Bilirubin AST ALT Alkaline Phosphatase Total Protein Albumin Lipase 117 Urine Color Urine Clarity Urine pH Ur Specific [place] Urine Protein Urine Glucose (UA) Urine Ketones Urine Occult Blood Urine Nitrate Urine Bilirubin Urine Urobilinogen Ur Leukocyte Esterase Urine RBC Urine WBC Ur Squamous Epith Cells Urine Mucus Micro UA Comment Urine Culture Comments Stl C.difficile Tox PCR St C. diff Tox Epid 027 Blood Type Antibody Screen 05/13/18 05/13/18 05/13/18 19:55 19:55 20:00 WBC RBC Hgb Hct MCV MCH MCHC RDW Plt Count MPV Neut % (Auto) Lymph % (Auto) [place] % (Auto) Eos % (Auto) Baso % (Auto) Neut # (Auto) Lymph # (Auto) [place] # (Auto) Eos # (Auto) Baso # (Auto) WBC Differential Differential Comment PT INR APTT Sodium 139 Potassium 3.5 Chloride 105 Carbon Dioxide 26.0 Anion Gap 8 BUN 12 Creatinine 0.57 Estimated GFR Greater than 89 Random Glucose 85 Calcium 9.0 Total Bilirubin 0.5 AST 15 ALT 25 Alkaline Phosphatase 112 Total Protein 8.1 Albumin 4.0 Lipase Urine Color Urine Clarity Urine pH Ur Specific [place] Urine Protein Urine Glucose (UA) Urine Ketones Urine Occult Blood Urine Nitrate Urine Bilirubin Urine Urobilinogen Ur Leukocyte Esterase Urine RBC Urine WBC Ur Squamous Epith Cells Urine Mucus Micro UA Comment Urine Culture Comments Stl C.difficile Tox PCR Negative St C. diff Tox Epid 027 Negative Blood Type O Positive Antibody Screen Negative 05/13/18 05/14/18 05/14/18 20:02 06:10 06:10 WBC 10.1 RBC 3.49 L Hgb 10.8 L Hct 31.2 L MCV 89.5 MCH 30.8 MCHC 34.5 RDW 13.4 Plt Count 284 MPV 7.6 Neut % (Auto) 54.6 Lymph % (Auto) 31.7 [place] % (Auto) 10.7 H Eos % (Auto) 2.4 Baso % (Auto) 0.6 Neut # (Auto) 5.5 Lymph # (Auto) 3.2 [place] # (Auto) 1.1 H Eos # (Auto) 0.2 Baso # (Auto) 0.1 WBC Differential . Differential Comment Auto diff final PT INR APTT Sodium 141 Potassium 3.5 Chloride 107 Carbon Dioxide 28.5 Anion Gap 6 BUN 8 Creatinine 0.62 Estimated GFR Greater than 89 Random Glucose 103 Calcium 8.0 L D Total Bilirubin AST ALT Alkaline Phosphatase Total Protein Albumin Lipase Urine Color Yellow Urine Clarity Hazy H Urine pH 5.0 Ur Specific [place] 1.023 Urine Protein Negative Urine Glucose (UA) Negative Urine Ketones Trace H Urine Occult Blood Small H Urine Nitrate Negative Urine Bilirubin Negative Urine Urobilinogen 2.0 H Ur Leukocyte Esterase Trace H Urine RBC 3 Urine WBC 3 Ur Squamous Epith Cells <1 Urine Mucus Many H Micro UA Comment Culture not ind Urine Culture Comments Culture not ind Stl C.difficile Tox PCR St C. diff Tox Epid 027 Blood Type Antibody Screen - Imaging Impressions Abdomen X-Ray 05/13/18 19:47 CONCLUSION: Abdomen/Pelvis CT 05/14/18 00:00 CONCLUSION: <Janell Garibay - Last Filed: 05/14/18 08:52> - Labs CBC & Chem 7: 05/14/18 11:51 05/14/18 06:10 Labs: Laboratory Results - last 24 hr 05/13/18 05/13/18 05/13/18 19:55 19:55 19:55 WBC 14.1 H RBC 4.10 Hgb 12.7 Hct 35.8 MCV 87.3 MCH 31.0 MCHC 35.5 RDW 13.7 Plt Count 339 MPV 7.6 Neut % (Auto) 70.3 H Lymph % (Auto) 21.1 [place] % (Auto) 7.3 Eos % (Auto) 0.8 Baso % (Auto) 0.5 Neut # (Auto) 9.9 H Lymph # (Auto) 3.0 [place] # (Auto) 1.0 H Eos # (Auto) 0.1 Baso # (Auto) 0.1 WBC Differential . Differential Comment Auto diff final PT 10.8 INR 1.1 APTT 29.6 Sodium Potassium Chloride Carbon Dioxide Anion Gap BUN Creatinine Estimated GFR Random Glucose Calcium Total Bilirubin AST ALT Alkaline Phosphatase Total Protein Albumin Lipase 117 Urine Color Urine Clarity Urine pH Ur Specific [place] Urine Protein Urine Glucose (UA) Urine Ketones Urine Occult Blood Urine Nitrate Urine Bilirubin Urine Urobilinogen Ur Leukocyte Esterase Urine RBC Urine WBC Ur Squamous Epith Cells Urine Mucus Micro UA Comment Urine Culture Comments Stl C.difficile Tox PCR St C. diff Tox Epid 027 Blood Type Antibody Screen 05/13/18 05/13/18 05/13/18 19:55 19:55 20:00 WBC RBC Hgb Hct MCV MCH MCHC RDW Plt Count MPV Neut % (Auto) Lymph % (Auto) [place] % (Auto) Eos % (Auto) Baso % (Auto) Neut # (Auto) Lymph # (Auto) [place] # (Auto) Eos # (Auto) Baso # (Auto) WBC Differential Differential Comment PT INR APTT Sodium 139 Potassium 3.5 Chloride 105 Carbon Dioxide 26.0 Anion Gap 8 BUN 12 Creatinine 0.57 Estimated GFR Greater than 89 Random Glucose 85 Calcium 9.0 Total Bilirubin 0.5 AST 15 ALT 25 Alkaline Phosphatase 112 Total Protein 8.1 Albumin 4.0 Lipase Urine Color Urine Clarity Urine pH Ur Specific [place] Urine Protein Urine Glucose (UA) Urine Ketones Urine Occult Blood Urine Nitrate Urine Bilirubin Urine Urobilinogen Ur Leukocyte Esterase Urine RBC Urine WBC Ur Squamous Epith Cells Urine Mucus Micro UA Comment Urine Culture Comments Stl C.difficile Tox PCR Negative St C. diff Tox Epid 027 Negative Blood Type O Positive Antibody Screen Negative 05/13/18 05/14/18 05/14/18 20:02 06:10 06:10 WBC 10.1 RBC 3.49 L Hgb 10.8 L Hct 31.2 L MCV 89.5 MCH 30.8 MCHC 34.5 RDW 13.4 Plt Count 284 MPV 7.6 Neut % (Auto) 54.6 Lymph % (Auto) 31.7 [place] % (Auto) 10.7 H Eos % (Auto) 2.4 Baso % (Auto) 0.6 Neut # (Auto) 5.5 Lymph # (Auto) 3.2 [place] # (Auto) 1.1 H Eos # (Auto) 0.2 Baso # (Auto) 0.1 WBC Differential . Differential Comment Auto diff final PT INR APTT Sodium 141 Potassium 3.5 Chloride 107 Carbon Dioxide 28.5 Anion Gap 6 BUN 8 Creatinine 0.62 Estimated GFR Greater than 89 Random Glucose 103 Calcium 8.0 L D Total Bilirubin AST ALT Alkaline Phosphatase Total Protein Albumin Lipase Urine Color Yellow Urine Clarity Hazy H Urine pH 5.0 Ur Specific [place] 1.023 Urine Protein Negative Urine Glucose (UA) Negative Urine Ketones Trace H Urine Occult Blood Small H Urine Nitrate Negative Urine Bilirubin Negative Urine Urobilinogen 2.0 H Ur Leukocyte Esterase Trace H Urine RBC 3 Urine WBC 3 Ur Squamous Epith Cells <1 Urine Mucus Many H Micro UA Comment Culture not ind Urine Culture Comments Culture not ind Stl C.difficile Tox PCR St C. diff Tox Epid 027 Blood Type Antibody Screen 05/14/18 11:51 WBC RBC Hgb 10.5 L Hct 30.8 L MCV MCH MCHC RDW Plt Count MPV Neut % (Auto) Lymph % (Auto) [place] % (Auto) Eos % (Auto) Baso % (Auto) Neut # (Auto) Lymph # (Auto) [place] # (Auto) Eos # (Auto) Baso # (Auto) WBC Differential Differential Comment PT INR APTT Sodium Potassium Chloride Carbon Dioxide Anion Gap BUN Creatinine Estimated GFR Random Glucose Calcium Total Bilirubin AST ALT Alkaline Phosphatase Total Protein Albumin Lipase Urine Color Urine Clarity Urine pH Ur Specific [place] Urine Protein Urine Glucose (UA) Urine Ketones Urine Occult Blood Urine Nitrate Urine Bilirubin Urine Urobilinogen Ur Leukocyte Esterase Urine RBC Urine WBC Ur Squamous Epith Cells Urine Mucus Micro UA Comment Urine Culture Comments Stl C.difficile Tox PCR St C. diff Tox Epid 027 Blood Type Antibody Screen - Imaging Impressions Abdomen X-Ray 05/13/18 19:47 CONCLUSION: Abdomen/Pelvis CT 05/14/18 00:00 CONCLUSION: <Elliot Melgoza - Last Filed: 05/14/18 18:28> Assessment and Plan - Plan Assessment: - BRBPR- Started yesterday morning-LLQ abdominal pain woke her up out of her sleep early yesterday morning, pain is constant, worse with BMs. States multiple episodes of BRBPR, mostly blood and blood clots with not much stool. History of colitis with pathology consistent with ischemic colitis in 2004 Colonoscopy (2004) Left-sided colitis, hemorrhoids. Pathology--> Colonic mucosa biopsies with focal ulceration and regenerative mucosal changes suggestive of ischemic colitis C Diff negative- enteric pathogens pending - Nausea with one episode of emesis- episode of emesis yesterday morning when she woke up, denies hematemesis and coffee ground emesis- continued nausea, no more emesis EGD (2001) revealed moderate esophagitis, questionable nodularity at the GE junction, multiple polyps in the body of the stomach, normal duodenum. Pathology (gastric polyp) body- type gastric mucosa with benign lymphoid aggregates, inflammation is not identified (GE junction) gastric mucosa with mild chronic inflammation. Plan: EGD and colonoscopy tomorrow Obtain consent Clear liquids tomorrow Golytely prep NPO after MN Serial H/H Stool studies Further recommendations to follow based on endoscopic findings Pt has been seen and examined by myself and Dr. Melgoza and this note is written on his behalf <Janell Garibay - Last Filed: 05/14/18 08:52> - Plan Agree with above note and plan, we will do endoscopy and colonoscopy tomorrow and further management based on the findings <Elliot Melgoza - Last Filed: 05/14/18 18:28>
[2018-05-14 13:23] LABS: Hematocrit 30.8 % (35.0-46.0); Hemoglobin 10.5 gm/dL (11.6-15.3)
[2018-05-14] MEDS ORDERED: PEG 3350/E-Lyte Soln 4000 ML Bottle PO ONE (16:00)
[2018-05-14] MEDS ORDERED: Levofloxacin 500 mg Premix Inj 500 MG/100 ML PIGGYBACK IV.SIG SCH (22:00)
[2018-05-15] MEDS: Sodium Chloride 0.45 % Inj 1,000 ML IV.CONT SCH ×2 (05:36→17:31)
[2018-05-15] MEDS: Morphine Inj 4 MG/ML Vial IV.PUSH PRN (05:39)
[2018-05-15 06:19] LABS: Baso # (Auto) 0.1 th/mm3 (0.0-0.2); Baso % (Auto) 0.6 % (0.0-2.0); Eos # (Auto) 0.2 th/mm3 (0.0-0.4); Hematocrit 28.7 % (35.0-46.0); Hemoglobin 10.1 gm/dL (11.6-15.3); Lymph # (Auto) 2.2 th/mm3 (1.0-4.8); Lymph % (Auto) 26.2 % (9.0-44.0); Mean Corpuscular Hemoglobin 31.2 pg (27.0-34.0); Mean Platelet Volume 7.6 fL (7.0-11.0); Mono # (Auto) 0.9 th/mm3 (0.0-0.9); Mono % (Auto) 10.3 % (0.0-8.0); Neut # (Auto) 5.2 th/mm3 (1.8-7.7); Neut % (Auto) 60.9 % (16.0-70.0); Platelet Count 260 th/mm3 (150-450); Red Blood Count 3.23 mil/mm3 (4.00-5.30); Red Cell Distribution Width 13.4 % (11.6-17.2); White Blood Count 8.5 th/mm3 (4.0-11.0)
[2018-05-15 06:43] LABS: Anion Gap 10 meq/L (5-15); Blood Urea Nitrogen 6 mg/dL (7-18); Calcium 7.9 mg/dL (8.5-10.1); Carbon Dioxide 25.6 meq/L (21.0-32.0); Chloride 106 meq/L (98-107); Glomerular Filtration Rate Greater Than 89 mL/min (>89); Glucose,Random 81 mg/dL (74-106); Potassium 3.5 meq/L (3.5-5.1); Sodium 142 meq/L (136-145)
[2018-05-15] MEDS: Senna/Docusate Sodium 8.6/50 MG Tablet PO SCH (08:20)
[2018-05-15] MEDS ORDERED: Metoprolol Tartrate 25 MG Tablet PO SCH (09:00)
[2018-05-15] MEDS ORDERED: Sodium Chlor 0.9% Inj 500 ML IV.SIG SCH (09:00)
[2018-05-15] MEDS ORDERED: Chlorhexidine Gluconate 2% 1 Pack (2 Cloths) TOPICAL SCH (09:00)
--- NOTE | 2018-05-15 10:03 | GIPROC ---
[facility] [address] [facility]. [facility], [address] COLONOSCOPY PROCEDURE REPORT EXAM DATE: 05/15/2018 PATIENT NAME: Mita Amaya MR #: [id number] BIRTHDATE: 1950 ENDOSCOPIST: Elliot Melgoza MD ORDER #: [id number] GANG MINER: Barbara Osuna and Josh Estrada STATUS: inpatient INDICATIONS: The patient is a 67 yr old female here for a colonoscopy due to PROCEDURE PERFORMED: Colonoscopy with biopsy MEDICATIONS: None and Per Anesthesia. PREP QUALITY: fair ESTIMATED BLOOD LOSS: None CONSENT: The patient understands the risks and benefits of the procedure and understands that these risks include, but are not limited to: sedation, allergic reaction, infection, perforation and/or bleeding. Alternative means of evaluation and treatment include, among others: physical exam, x-rays, and/or surgical intervention. The patient elects to proceed with this endoscopic procedure. medical equipment was checked for proper function. Hand hygiene and appropriate measures for infection prevention was taken. After the risks, benefits and alternatives of the procedure were thoroughly explained, Informed consent was verified, confirmed and timeout was successfully executed by the treatment team. A digital exam revealed no abnormalities of the rectum The Pentax EC-3490Li endoscope was introduced through the anus and advanced to the cecum, which was identified by both the appendix and ileocecal valve. The instrument was then slowly withdrawn as the colon was fully examined. COLON FINDINGS: Erythema with ulcerations in the sigmoid colon consistent with ischemic colitis biopsy was done. The colon mucosa was otherwise normal. Retroflexed views revealed no abnormalities The scope was then completely withdrawn from the patient and the procedure terminated. ADVERSE EVENTS: There were no complications. IMPRESSIONS: 1. Erythema with ulcerations in the sigmoid colon consistent with ischemic colitis biopsy was done 2. The colon mucosa was otherwise normal 3. Retroflexed views revealed no abnormalities 4. Revealed no abnormalities of the rectum RECOMMENDATIONS: 1. Await biopsy results. Biopsy results will not be ready for 7-10 days. If you don't hear from us in two weeks, call our office for results. 2. Yearly hemoccult 3. Avoid constipation and straining RECALL: Return 2 months Colonoscopy Elliot Melgoza MD eSigned: Elliot Melgoza MD 05/15/2018 10:03 AM cc:
--- NOTE | 2018-05-15 10:05 | GIPROC ---
[facility] [address] [facility]. [facility], [address] EGD PROCEDURE REPORT EXAM DATE: 05/15/2018 PATIENT NAME: Mita Amaya MR #: [id number] BIRTHDATE: 1950 ATTENDING: Elliot Melgoza MD ORDER #: [id number] [employer]CHAEOLOGY LECTURER: Basmi Osuna Juan STATUS: inpatient INDICATIONS: The patient is a 67 yr old female here for an EGD due to abdominal pain and Nausea PROCEDURE PERFORMED: EGD w/ biopsy MEDICATIONS: None and Per Anesthesia. TOPICAL ANESTHETIC: none CONSENT: The patient understands the risks and benefits of the procedure and understands that these risks include, but are not limited to: sedation, allergic reaction, infection, perforation and/or bleeding. Alternative means of evaluation and treatment include, among others: physical exam, x-rays, and/or surgical intervention. The patient elects to proceed with this endoscopic procedure. medical equipment was checked for proper function. Hand hygiene and appropriate measures for infection prevention was taken. After the risks, benefits and alternatives of the procedure were thoroughly explained, Informed consent was verified, confirmed and timeout was successfully executed by the treatment team. The patient was anesthetized with topical anesthesia and the EC-3490Li (Pedi C) endoscope was introduced through the mouth and advanced to the second portion of the duodenum. Retroflexed views revealed no abnormalities The gastroscope was then slowly withdrawn and removed. Some redness in the stomach mostly in the antrum questionable gastritis biopsy to rule out H. pylori. ADVERSE EVENTS: There were no complications. IMPRESSIONS: 1. Some redness in the stomach mostly in the antrum questionable gastritis biopsy to rule out H. pylori 2. Retroflexed views revealed no abnormalities RECOMMENDATIONS: 1. Await biopsy results. Biopsy results will not be ready for 7-10 days. If you don't hear from us in two weeks, call our office for biopsy results. 2. Avoid NSAIDS 3. Anti-reflux regimen PATIENT CONDITION: stable DISPOSITION: Inpatient REPEAT EXAM: NONE Elliot Melgoza MD eSigned: Elliot Melgoza MD 05/15/2018 10:05 AM cc:
--- NOTE | 2018-05-15 10:10 | P.PNGI ---
Subjective Interval history: Patient laying in bed comfortably, no new complain, no rectal bleeding or abdominal pain Physical Exam Vital signs: Vital Signs 05/14/18 12:00 05/14/18 15:30 05/14/18 20:00 Temperature 98.9 F 98.6 F 99 F Pulse Rate 54 L 60 58 L Respiratory Rate 16 16 18 Blood Pressure 122/58 L 135/60 148/65 H Pulse Oximetry 97 16 L 98 05/14/18 20:27 05/15/18 00:00 05/15/18 04:00 Temperature 98.8 F 98.7 F Pulse Rate 60 61 Respiratory Rate 17 18 18 Blood Pressure 174/72 H 139/63 Pulse Oximetry 97 97 05/15/18 05:22 05/15/18 05:41 Temperature Pulse Rate Respiratory Rate 18 18 Blood Pressure Pulse Oximetry Intake & Output 05/14/18 05/15/18 05/15/18 18:59 06:59 18:59 Intake Total 2400 / 2400 2900 / 2900 Balance 2400 / 2400 2900 / 2900 Weight 86.58 kg 86.3 kg Intake: IV 2400 / 2400 1300 / 1300 1/2 Normal Saline Inj 1,000 ML 1000 / 1000 1000 / 1000 @ 75 mls/hr IV.CONT .[id number] TONA Rx#:[id number] Levaquin 500 mg Premix Inj 500 100 / 100 mg In 100 ml @ 100 mls/hr IV. SIG Q24H TONA Rx#:[id number] Flagyl 500 MG Inj 100 ML @ 100 200 / 200 200 / 200 mls/hr IV.SIG Q8H TONA Rx#: [id number] Oral 1600 / 1600 Other: # Voids 3 8 Date of Last Bowel Movement 05/14/18 05/14/18 05/15/18 # Bowel Movements 3 8 Weight On Admission 86.58 kg - Constitutional no acute distress - Routine HEENT Exam Head: Present: normocephalic, atraumatic Eye: Present: EOMI, PERRL - Routine Neck Exam Present: supple, full ROM - Routine Respiratory Exam Comments: Lung exam was normal - Routine Abdominal Exam Present: soft, normoactive bowel sounds Comments: No hepatosplenomegaly no masses Results - Labs CBC & Chem 7: 05/15/18 04:23 05/15/18 04:23 Laboratory Results - last 24 hr 05/14/18 05/15/18 05/15/18 11:51 04:23 04:23 WBC 8.5 RBC 3.23 L Hgb 10.5 L 10.1 L Hct 30.8 L 28.7 L MCV 89.0 MCH 31.2 MCHC 35.0 RDW 13.4 Plt Count 260 MPV 7.6 Neut % (Auto) 60.9 Lymph % (Auto) 26.2 [place] % (Auto) 10.3 H Eos % (Auto) 2.0 Baso % (Auto) 0.6 Neut # (Auto) 5.2 Lymph # (Auto) 2.2 [place] # (Auto) 0.9 Eos # (Auto) 0.2 Baso # (Auto) 0.1 WBC Differential . Differential Comment Auto diff final Sodium 142 Potassium 3.5 Chloride 106 Carbon Dioxide 25.6 Anion Gap 10 BUN 6 L Creatinine 0.50 Estimated GFR Greater than 89 Random Glucose 81 Calcium 7.9 L Microbiology 05/13/18 20:00 Stool Enteric Pathogens (PCR) - Final No enteric pathogens detected by PCR (No Salmonella sp., Shigella sp., Campylobacter sp., Yersinia enterocolitica, Vibrio sp., Norovirus, or EHEC (Shiga Toxin 1 or Shiga Toxin 2) detected. Assessment and Plan - Plan Had an upper endoscopy and colonoscopy today The upper endoscopy showed questionable mild gastritis biopsy to rule out H. pylori The colon showed erythema and ulceration in the sigmoid consistent with ischemic colon biopsy was done, I discussed the finding on CT scan with the radiologist that are not able to assess the vessels in the abdomen so they recommended doing CTA to rule out obstructive lesion in the vessels Recommendation CTA today May feed patient as tolerated If the CTA negative and tolerating diets patient can be discharged home
--- NOTE | 2018-05-15 11:04 | P.PNIM ---
Subjective Interval history: Pt had EGD/colonoscopy this morning which noted some questionable gastritis in the antrum and erythema with ulcerations in the sigmoid colon consistent with ischemic colitis Pt has not passed any more BRBPR No significant abdominal discomfort Physical Exam Vital signs: Vital Signs 05/14/18 12:00 05/14/18 15:30 05/14/18 20:00 Temperature 98.9 F 98.6 F 99 F Pulse Rate 54 L 60 58 L Respiratory Rate 16 16 18 Blood Pressure 122/58 L 135/60 148/65 H Pulse Oximetry 97 16 L 98 05/14/18 20:27 05/15/18 00:00 05/15/18 04:00 Temperature 98.8 F 98.7 F Pulse Rate 60 61 Respiratory Rate 17 18 18 Blood Pressure 174/72 H 139/63 Pulse Oximetry 97 97 05/15/18 05:22 05/15/18 05:41 05/15/18 10:13 Temperature 97.8 F Pulse Rate 61 Respiratory Rate 18 18 18 Blood Pressure 125/58 L Pulse Oximetry 93 L Intake & Output 05/14/18 05/15/18 05/15/18 18:59 06:59 18:59 Intake Total 2400 / 2400 2900 / 2900 600 / 600 Balance 2400 / 2400 2900 / 2900 600 / 600 Weight 86.58 kg 86.3 kg Intake: IV 2400 / 2400 1300 / 1300 600 / 600 1/2 Normal Saline Inj 1,000 ML 1000 / 1000 1000 / 1000 @ 75 mls/hr IV.CONT .[id number] TONA Rx#:[id number] LR 1000 mL Inj 1,000 ML @ 30 600 / 600 mls/hr IV.SIG .Q24H TONA Rx#: [id number] Levaquin 500 mg Premix Inj 500 100 / 100 mg In 100 ml @ 100 mls/hr IV. SIG Q24H TONA Rx#:[id number] Flagyl 500 MG Inj 100 ML @ 100 200 / 200 200 / 200 mls/hr IV.SIG Q8H TONA Rx#: [id number] Oral 1600 / 1600 Other: # Voids 3 8 Date of Last Bowel Movement 05/14/18 05/14/18 05/15/18 # Bowel Movements 3 8 Weight On Admission 86.58 kg Narrative: GENERAL: NAD, AAOx3 CARDIO: Regular RESP: Breath sounds equal bilaterally. No accessory muscle use. ABD: +BS, soft, nondistended, minimal discomfort, no guarding or rebound EXT: No cyanosis, or edema. Results - Labs CBC & Chem 7: 05/15/18 04:23 05/15/18 04:23 Laboratory Results - last 24 hr 05/14/18 05/15/18 05/15/18 11:51 04:23 04:23 WBC 8.5 RBC 3.23 L Hgb 10.5 L 10.1 L Hct 30.8 L 28.7 L MCV 89.0 MCH 31.2 MCHC 35.0 RDW 13.4 Plt Count 260 MPV 7.6 Neut % (Auto) 60.9 Lymph % (Auto) 26.2 [place] % (Auto) 10.3 H Eos % (Auto) 2.0 Baso % (Auto) 0.6 Neut # (Auto) 5.2 Lymph # (Auto) 2.2 [place] # (Auto) 0.9 Eos # (Auto) 0.2 Baso # (Auto) 0.1 WBC Differential . Differential Comment Auto diff final Sodium 142 Potassium 3.5 Chloride 106 Carbon Dioxide 25.6 Anion Gap 10 BUN 6 L Creatinine 0.50 Estimated GFR Greater than 89 Random Glucose 81 Calcium 7.9 L Microbiology 05/13/18 20:00 Stool Enteric Pathogens (PCR) - Final No enteric pathogens detected by PCR (No Salmonella sp., Shigella sp., Campylobacter sp., Yersinia enterocolitica, Vibrio sp., Norovirus, or EHEC (Shiga Toxin 1 or Shiga Toxin 2) detected. Assessment and Plan - Assessment (1) Hematochezia Code(s): K92.1 - Melena Status: Acute Plan: Hematochezia Hx of acute colitis Anemia - Pt is a 67 y/o female with HTN, RA, remote hx of acute ischemic colitis ( colonoscopy in [address] Krishnamurthy which revealed left sided colitis and pathology consistent with ischemic colitis). - She presented to the ED at [facility] on 05/13/18 with acute onset of abdominal pain, N/V, and hematochezia that began around 0600 on 05/13. - Pt reported profuse N/V but no hematemesis or coffee-ground emesis. She had hematochezia and mucoid stools up until around 0400 on 05/14. - CT Abd/pelvis (05/13) --> 7 mm benign-appearing probable right hepatic lobe cyst, s/p appendectomy and hysterectomy, otherwise, no acute intraperitoneal or pelvic process to explain current clinical symptoms. - Pt was started on Flagyl and Levaquin at admission - Pt was seen by GI and underwent EGD/colonoscopy on 05/15 which noted some questionable gastritis in the antrum and erythema with ulcerations in the sigmoid colon consistent with ischemic colitis - Pt to have CTA of the abdomen this morning - Stools are negative for C. diff - Pt will need to followup with GI in 2 weeks to review pathology results - Pt is to followup with Dr. Dickens in 1 week HTN - Pt does not take any home meds - BP stable currently The exam, history, and the medical decision-making described in the above note were completed with the assistance of the mid-level provider. I reviewed and agree with the findings presented. I attest that I had a [id number] encounter with the patient on the same day, and personally performed and documented my assessment and findings in the medical record. ischemic colitis. cta abdomen per GI. if tolerating food and cta neg then dc/ pt eager for dc. no further bleeding or pain. dc on abx. (2) Colitis Code(s): K52.9 - Noninfective gastroenteritis and colitis, unspecified Status : Acute
--- NOTE | 2018-05-15 12:13 | ECG ---
Date Performed: 05/14/2018 Time Performed: 14:42:09 PTAGE: 67 years EKG: Sinus rhythm BORDERLINE LEFT AXIS DEVIATION BORDERLINE ECG PREVIOUS TRACING : 11/15/2004 19.03 Since the previous tracing, no significant change noted DOCTOR: Axel Jasmine Interpretating Date/Time 05/15/2018 12:12:52
[2018-05-15 16:15] VITALS: PULSE 75; RESP 16; TEMP 98.3; O2SAT 98
[2018-05-15 16:18] VITALS: BP 174/75
--- NOTE | 2018-05-15 16:55 | CT ---
EXAM DATE: 05/15/2018 3:53 PM EDT AGE/SEX: 67 years / Female INDICATIONS: Left lower abdominal pain. CLINICAL DATA: This is the patient's initial encounter. Patient reports that signs and symptoms have been present for 2 weeks and indicates a pain score of 3/10. MEDICAL/SURGICAL HISTORY: Hypertension. Colitis. Hysterectomy. Tonsillectomy. RADIATION DOSE: 15.17 CTDI (mGy) COMPARISON: [facility] [place] ABDOMEN & PELVIS W CONTRAST, 05/14/2018. . TECHNIQUE: Volumetric scanning was performed using a multi-row detector CT scanner during bolus infu [place] of 98 ml Omnipaque 350 (iohexol) nonionic water-soluble contrast as a single exam dose. . The data was post processed with a variety of visualization algorithms including full volume maximum inte nsity projection, multi-planar sliding thin slab reformation, curved planar reformation, and surface rendering techniques. Using automated exposure control and adjustment of the mA and/or kV according to patient size, radiation dose was kept as low as reasonably achievable to obtain optimal diagnostic quality images. DICOM format image data is available electronically for review and comparison. FINDINGS: There is subsegmental atelectasis in the both bases. There is decreased density of the liver with res pect to the spleen compatible with fatty infiltration. The spleen is unremarkable. The gallbladder an d pancreas are unremarkable. No intrahepatic or extrahepatic ductal dilatation is seen. The adrenal glands and kidneys appear normal bilaterally. No hydronephrosis or mass lesions are identified. The bladder appears normal. No wall thickening or intraluminal masses are identified. There is mucosal edema involving the sigmoid colon which may reflect infectious or inflammatory colit is. There is no evidence of abscess. The remainder of the colon is unremarkable. The aorta is normal in caliber. There is no evidence of aneurysm or dissection. The renal artery orig ins are patent bilaterally. The celiac axis and superior mesenteric artery origins are also patent. CONCLUSION: No evidence of mesenteric ischemia Mucosal edema involving the sigmoid colon which may reflect colitis Electronically signed by: Gino Pritchard MD 05/15/2018 4:54 PM EDT
== END 2018-05-15 18:17 | disposition home or self-care (01) ==
LOC: NEPE 16:25 → NEDA 22:37 → NEPFCDU 05-14 00:49 → N06 05-14 15:22
PROVIDERS: ADMIT Hospitalist; ATTEND Hospitalist
PROC: COLONOS (2018-05-15 09:30)